=== PATIENT | male | born 1940 | race Two or more races ===

== ENCOUNTER 2022-09-10 23:53 | Inpatient (IN) | payer OTHER ==
[~2022-09-10] VITALS: Ht 180.3 cm; Wt 110.2 kg
[2022-09-11] MEDS ORDERED: TOPROL XL25 M1 PO (00:30)
[2022-09-11] MEDS ORDERED: TAMS0.4C PO (00:30)
[2022-09-11] MEDS ORDERED: ATACAND32 MG (00:30)
[2022-09-11] MEDS ORDERED: GRALISE600 MG PO (00:31)
[2022-09-11] MEDS ORDERED: GLIMEPIRIDE4 M1 PO (00:31)
[2022-09-11] MEDS ORDERED: TOLTERODINE TART2 M1 PO (00:32)
[2022-09-11] MEDS ORDERED: FENOFIBRATE160 MG PO (00:33)
[2022-09-11] MEDS ORDERED: DIALYVITE TABL1 EACH PO (00:34)
== END 2022-09-12 18:28 | disposition home or self-care (01) | DRG 639 ==
LOC: ER 23:53 → SEC-K 09-11 18:26 → SURH 09-11 18:26
PROVIDERS: ADMIT Internal Medicine; ATTEND Internal Medicine
PROC: 4A033R1 Measurement of Arterial Saturation, Peripheral, Percutaneous Approach (ICD-10-PCS; principal; 2022-09-11)
PROC: 3E0F7GC Introduction of Other Therapeutic Substance into Respiratory Tract, Via Natural or Artificial Opening (ICD-10-PCS; 2022-09-11)
PROC: B020ZZZ Computerized Tomography (CT Scan) of Brain (ICD-10-PCS; 2022-09-11)
PROC: 4A12X4Z Monitoring of Cardiac Electrical Activity, External Approach (ICD-10-PCS; 2022-09-12)
DX: E11.649 Type 2 diabetes mellitus with hypoglycemia without coma (principal); R06.02 Shortness of breath; I95.9 Hypotension, unspecified; D72.829 Elevated white blood cell count, unspecified; E03.9 Hypothyroidism, unspecified; Z20.822 Contact with and (suspected) exposure to COVID-19; R09.02 Hypoxemia; R86.0 Abnormal level of enzymes in specimens from male genital organs; R41.82 Altered mental status, unspecified